=== PATIENT | female | born 2000 | race Hispanic/Latino ===

== ENCOUNTER 2025-05-02 20:02 | Day surgery (SDC) | payer OTHER ==
[2025-05-02 20:32] VITALS: BMI 24.2
[2025-05-02 21:40] LABS: Glucose, Urine (Dipstick) Normal (Negative); Leukocyte 100 (Negative); Protein, Urine (Dipstick) Negative (Neg-Trace); Specific Gravity, Urine 1.010 (1.005-1.030)
[2025-05-02 21:53] LABS: Bacteria/HPF 1+ HPF (None Seen); CAUTI Indications for Culture Pregnancy; RBC/HPF 0-3 HPF (0-3)
[2025-05-02 21:55] LABS: Urine Culture Reflex Yes Yes
== END 2025-05-02 23:20 | disposition home or self-care (01) ==
LOC: CSHLD/OP 20:02
PROVIDERS: ATTEND Family Medicine
DX: O98.813 Other maternal infectious and parasitic diseases complicating pregnancy, third trimester (principal); B37.31 Acute candidiasis of vulva and vagina; O23.592 Infection of other part of genital tract in pregnancy, second trimester; B96.89 Other specified bacterial agents as the cause of diseases classified elsewhere; O47.02 False labor before 37 completed weeks of gestation, second trimester; O99.891 Other specified diseases and conditions complicating pregnancy; R51.9 Headache, unspecified; Z3A.24 24 weeks gestation of pregnancy
CPT/HCPCS: 76817; 81001; 87086; 87480; 87510; 87660; 99285